=== PATIENT | female | born 1940 | race Caucasian/White ===

== ENCOUNTER 2018-04-04 09:48 | Inpatient (IN) | payer MEDICARE, MEDICAID ==
[2018-04-04 12:06] VITALS: BP 144/72
[2018-04-04] MEDS ORDERED: Maalox 30 mL Cup PO PRN (12:15)
[2018-04-04] MEDS ORDERED: Magnesium Hydroxide (MOM) 30 mL UDC PO PRN (12:15)
--- NOTE | 2018-04-04 20:59 | History & Physical ---
ADMIT DATE: 04/04/2018 CHIEF COMPLAINT: Admitted to inpatient psychiatry. HISTORY OF PRESENT ILLNESS: This is a 77-year-old female with history of hypertension, arthritis, diabetes, CAD status post CABG, admitted from outside of the hospital and directly admitted to inpatient unit with a medical history as mentioned in history of present illness. PAST SURGICAL HISTORY: Status post CABG, cataract surgery. ALLERGIES: PENICILLIN. MEDICATIONS: The patient is on aspirin, atorvastatin, Plendil, losartan, magnesium, metoprolol, metformin, multivitamins, Effexor, Ambien. FAMILY HISTORY: Noncontributory. SOCIAL HISTORY: Quit smoking at 37. Nondrinker. 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 The patient does have four kids. REVIEW OF SYSTEMS: HEENT: No blurred vision or pain. LUNGS: No diagnosis of COPD or asthma. HEART: The patient has hypertension, CAD and diabetes. ABDOMEN: No nausea, vomiting, pain. GENITOURINARY: The patient denies increased frequency or dysuria. NEUROLOGIC: No headache, seizure or syncope. PSYCHIATRIC: Stable. PHYSICAL EXAMINATION: VITAL SIGNS: Blood pressure 153/64, respiration 18, pulse 83, temperature 98.0. GENERAL: Elderly female in a wheelchair. NECK: Supple. No mass. LUNGS: Equal breath sounds, otherwise clear to auscultation. HEART: Regular rate and rhythm with systolic ejection murmur. ABDOMEN: Soft, globular. EXTREMITIES: Positive excoriation. NEUROLOGIC: Limited. LABORATORY DATA: On this admission are pending. There are medical records from outside of the hospital to review. ASSESSMENT AND PLAN: ____ hypertension, dementia, hypothyroidism, diabetes, coronary artery disease, continue the patient on insulin sliding scale. We will place the patient on insulin sliding scale. Continue metformin. We will review the rest of the laboratories. Continue statin medication. Continue Synthroid. We will review the patient's medication. We will follow closely with you. JOB# [id number]
[2018-04-04] MEDS: INSULIN ASPART, RECOMBINANT 100 UNITS/ML SUBQ SCH (21:29)
--- NOTE | 2018-04-05 04:38 | Psychiatric Evaluation ---
DATE OF SERVICE: 04/04/2018 IDENTIFYING DATA: The patient is a 77-year-old woman, resident of [facility]. Information obtained by directly interviewing the patient as well as reviewing the admission papers and they are reliable. JUSTIFICATION FOR HOSPITALIZATION: The patient is admitted on 5150 as a danger to self. CHIEF COMPLAINT: "I do not know. I took couple of pills." HISTORY OF PRESENT ILLNESS: This is the first psychiatric hospitalization to for this patient who is reported to have a longstanding history of depression and has been reported to be on Effexor. The patient on the day of the hospitalization is reported to have taken 9 tablets of Tylenol and the patient is reported to have been going through a lot of depression with multiple losses recently and hence the patient has been taken to the [facility] where she has been placed on 5150 and transferred over here for stabilization. During the evaluation, the patient's daughter who has been visiting the patient gave most of the information. The patient is reported to have been diagnosed to have dementia for the past 3 years and the patient has been diagnosed to have Lewy body dementia. The patient also reported to have been depression all her life. The patient is recently reported to have lost her best friend and her brother committed suicide and the patient has to sell her house and the patient is finding everything is dramatic. During the evaluation, the patient is also stating that she has been hearing music in her head and that the voices are male and very troublesome. The patient is not clearly articulating any command hallucinations. PAST PSYCHIATRIC HISTORY: Please refer to the above. MEDICAL HISTORY: Physical examination is requested to be done by Dr. Putnam. SUBSTANCE ABUSE HISTORY: None. PHYSICAL OR SEXUAL ABUSE HISTORY: None. LEGAL PROBLEMS: None at this time. SOCIAL HISTORY: The patient is a resident of the [facility]. STRENGTH AND ASSETS: The patient is motivated and has good family support. MENTAL STATUS EXAMINATION: The patient is a 77-year-old, looking her stated age. Eye contact is fair. Mood is noted to be anxious. Affect is constricted. The patient has paranoia and is reported to have been accusing the family of stealing her money and now she is telling that she has been hearing the voices and particularly music in her head. Insight and judgment at this time are noted to be still impaired. Impulse control is noted to be poor. Coping skills are noted to be very poor. The patient has been having difficult time to cope with the stress. However, the patient is willing to comply with the treatment. DIAGNOSTIC IMPRESSION: AXIS I: Major depressive disorder, recurrent and severe. AXIS IB: Lewy body dementia and behavioral changes, secondary trait. AXIS II: None. AXIS III: Hypertension, hypercholesterolemia and diabetes mellitus. IMMEDIATE TREATMENT PLAN: The patient is going to be observed on inpatient unit, provided with supportive psychotherapy. The patient is going to be closely monitored. The patient is going to be encouraged to participate in the groups and verbalize the concerns. ESTIMATED LENGTH OF STAY: 5-7 days. DISCHARGE CRITERIA: When she no longer a threat to self or others and be able to cope up with the stress. JOB# [id number]
[2018-04-05] MEDS: INSULIN ASPART, RECOMBINANT 100 UNITS/ML SUBQ SCH ×4 (06:35→21:47)
[2018-04-05] MEDS: Levothyroxine 0.075 Mg Tab PO SCH (06:49)
[2018-04-05] MEDS: Aspirin 81mg Chewable Tab PO SCH (08:59)
[2018-04-05] MEDS: Multivitamin Tab PO SCH (09:00)
[2018-04-05] MEDS ORDERED: Atorvastatin Calcium 10 MG TAB PO SCH (09:00)
--- NOTE | 2018-04-05 13:14 | Internal Medicine Prog Note ---
Internal Medicine Subjective - Subjective Patient seen and examined:: with staff, chart reviewed Patient is:: awake, verbal, interactive, in wheelchair Per staff patient has:: no adverse event, no episodes of fall, poor appetite, tolerating meds Internal Medicine Objective - Results Recent Labs: Laboratory Last Values POC Glucose 172 MG/DL (70 - 105) H 04/05/18 11:59 - Physical Exam Vitals and I&O: Vital Signs Temp 97.9 F 04/05/18 06:27 Pulse 89 04/05/18 09:00 Resp 20 04/05/18 06:27 BP 173/73 04/05/18 09:00 Pulse Ox 97 04/05/18 06:27 Intake & Output 04/04/18 04/05/18 04/05/18 18:59 06:59 18:59 Intake Total 480 Balance 480 Weight (lbs) 94.801 kg Intake: Oral 480 Other: # Voids 1 Weight Source Patient stated Active Medications: Current Medications Acetaminophen (Tylenol) 650 mg PO Q4HR PRN PRN Reason: Mild Pain / Temp above 100 Stop: 06/03/18 12:14 Al Hydrox/Mg Hydrox/Simethicone (Maalox) 30 ml PO Q4HR PRN PRN Reason: GI DISTRESS Stop: 06/03/18 12:14 Amlodipine Besylate (Norvasc) 5 mg PO DAILY [facility] Stop: 06/04/18 08:59 Last Admin: 04/05/18 09:00 Dose: 5 mg Aspirin (Aspirin Chewable) 81 mg PO DAILY [facility] Stop: 06/04/18 08:59 Last Admin: 04/05/18 08:59 Dose: 81 mg Atorvastatin Calcium (Lipitor) 40 mg PO DAILY [facility]; Protocol Stop: 06/04/18 08:59 Last Admin: 04/05/18 08:58 Dose: 40 mg Insulin Aspart (Novolog) 0 units SUBQ ACHS [facility]; Protocol Stop: 06/03/18 20:59 Last Admin: 04/05/18 12:01 Dose: Not Given Isosorbide Mononitrate (Imdur) 60 mg PO DAILY [facility] Stop: 06/04/18 08:59 Last Admin: 04/05/18 08:58 Dose: 60 mg Levothyroxine Sodium (Synthroid) 0.15 mg PO QDAC [facility] Stop: 06/04/18 07:29 Last Admin: 04/05/18 06:49 Dose: 0.15 mg Losartan Potassium (Cozaar) 100 mg PO DAILY [facility] Stop: 06/04/18 08:59 Last Admin: 04/05/18 08:59 Dose: 100 mg Magnesium Hydroxide (Milk Of Magnesia) 30 ml PO HS PRN PRN Reason: Constipation Metformin HCl (Glucophage) 500 mg PO BIDWM [facility] Stop: 06/04/18 08:59 Last Admin: 04/05/18 09:08 Dose: 500 mg Metoprolol Tartrate (Lopressor) 25 mg PO BID [facility] Stop: 06/04/18 08:59 Last Admin: 04/05/18 08:59 Dose: 25 mg Miscellaneous (Clinical Monitoring) 1 ea MC DAILY [facility] Stop: 06/04/18 08:59 Multivitamins/Vitamin C (Theragran) 1 tab PO DAILY [facility] Stop: 06/04/18 08:59 Last Admin: 04/05/18 09:00 Dose: 1 tab Venlafaxine HCl (Effexor Xr) 75 mg PO DAILY [facility]; Protocol Stop: 06/04/18 08:59 Last Admin: 04/05/18 08:58 Dose: 75 mg Zolpidem Tartrate (Ambien) 5 mg PO HS PRN PRN Reason: Insomnia Stop: 06/03/18 12:14 Last Admin: 04/04/18 22:25 Dose: 5 mg General: alert HEENT: NC/AT, PERRLA, EOMI Neck: Supple, No JVD Lungs: CTAB Cardiovascular: RRR, Normal S1, Normal S2 Abdomen: soft, non-tender, positive bowel sound Extremities: excoriation, contracture Neurological: disorganized, unsteady Internal Medicine Assmt/Plan - Assessment Assessment: ASSESSMENT AND PLAN: _dm___ hypertension, dementia, hypothyroidism, diabetes, coronary artery disease, - Plan Plan: PLAN: continue the patient on insulin sliding scale. We will place the patient on insulin sliding scale. Continue metformin. We will review the rest of the laboratories. Continue statin medication. Continue Synthroid. We will review the patient's medication. We will follow closely with you.
--- NOTE | 2018-04-06 01:39 | Progress Notes ---
DATE: 04/05/2018 PSYCHIATRIC PROGRESS NOTE SUBJECTIVE: Staff was spoken to. The patient is interviewed. Mood is noted to be dysphoric. The patient has been having difficult time to cope with the stress. No side effects to the medications are noted. The patient is still depressed. The patient is going on a tangent. The patient is confabulating. The patient is currently on 75 mg of the venlafaxine and has been able to tolerate the medication. The patient is very labile at this time. No side effects to the medications are noted. ASSESSMENT: The patient is still depressed and impulsive. PLAN: To closely monitor the patient. I encouraged the patient to verbalize the concerns rather than to act out. JOB# [id number]
[2018-04-06] MEDS: INSULIN ASPART, RECOMBINANT 100 UNITS/ML SUBQ SCH ×4 (06:34→20:46)
[2018-04-06] MEDS: Levothyroxine 0.075 Mg Tab PO SCH (06:45)
[2018-04-06] MEDS: Aspirin 81mg Chewable Tab PO SCH (08:57)
[2018-04-06] MEDS: Multivitamin Tab PO SCH (08:58)
--- NOTE | 2018-04-06 09:45 | Internal Medicine Prog Note ---
Internal Medicine Subjective - Subjective Patient seen and examined:: with staff, chart reviewed Patient is:: awake, verbal, interactive, in wheelchair Per staff patient has:: no adverse event, no episodes of fall, poor appetite, tolerating meds Internal Medicine Objective - Results Recent Labs: Laboratory Last Values POC Glucose 146 MG/DL (70 - 105) H 04/06/18 06:23 - Physical Exam Vitals and I&O: Vital Signs Temp 97.4 F 04/06/18 06:38 Pulse 68 04/06/18 09:00 Resp 18 04/06/18 06:38 BP 135/62 04/06/18 09:00 Pulse Ox 96 04/06/18 06:38 Intake & Output 04/05/18 04/06/18 04/06/18 18:59 06:59 18:59 Intake Total 950 Balance 950 Intake: Oral 950 Other: # Voids 3 # Bowel Movements 0 Active Medications: Current Medications Acetaminophen (Tylenol) 650 mg PO Q4HR PRN PRN Reason: Mild Pain / Temp above 100 Stop: 06/03/18 12:14 Al Hydrox/Mg Hydrox/Simethicone (Maalox) 30 ml PO Q4HR PRN PRN Reason: GI DISTRESS Stop: 06/03/18 12:14 Amlodipine Besylate (Norvasc) 5 mg PO DAILY [facility] Stop: 06/04/18 08:59 Last Admin: 04/06/18 08:59 Dose: 5 mg Aspirin (Aspirin Chewable) 81 mg PO DAILY [facility] Stop: 06/04/18 08:59 Last Admin: 04/06/18 08:57 Dose: 81 mg Atorvastatin Calcium (Lipitor) 40 mg PO DAILY [facility]; Protocol Stop: 06/04/18 08:59 Last Admin: 04/06/18 08:58 Dose: 40 mg Insulin Aspart (Novolog) 0 units SUBQ ACHS [facility]; Protocol Stop: 06/03/18 20:59 Last Admin: 04/06/18 06:34 Dose: Not Given Isosorbide Mononitrate (Imdur) 60 mg PO DAILY [facility] Stop: 06/04/18 08:59 Last Admin: 04/06/18 08:59 Dose: 60 mg Levothyroxine Sodium (Synthroid) 0.15 mg PO QDAC [facility] Stop: 06/04/18 07:29 Last Admin: 04/06/18 06:45 Dose: 0.15 mg Losartan Potassium (Cozaar) 100 mg PO DAILY [facility] Stop: 06/04/18 08:59 Last Admin: 04/06/18 09:00 Dose: 100 mg Magnesium Hydroxide (Milk Of Magnesia) 30 ml PO HS PRN PRN Reason: Constipation Metformin HCl (Glucophage) 500 mg PO BIDWM [facility] Stop: 06/04/18 08:59 Last Admin: 04/06/18 08:57 Dose: 500 mg Metoprolol Tartrate (Lopressor) 25 mg PO BID [facility] Stop: 06/04/18 08:59 Last Admin: 04/06/18 09:00 Dose: 25 mg Miscellaneous (Clinical Monitoring) 1 ea MC DAILY [facility] Stop: 06/04/18 08:59 Multivitamins/Vitamin C (Theragran) 1 tab PO DAILY [facility] Stop: 06/04/18 08:59 Last Admin: 04/06/18 08:58 Dose: 1 tab Venlafaxine HCl (Effexor Xr) 75 mg PO DAILY [facility]; Protocol Stop: 06/04/18 08:59 Last Admin: 04/06/18 08:57 Dose: 75 mg Zolpidem Tartrate (Ambien) 5 mg PO HS PRN PRN Reason: Insomnia Stop: 06/03/18 12:14 Last Admin: 04/04/18 22:25 Dose: 5 mg General: alert HEENT: NC/AT, PERRLA, EOMI Neck: Supple, No JVD Lungs: CTAB Cardiovascular: RRR, Normal S1, Normal S2 Abdomen: soft, non-tender, positive bowel sound Extremities: excoriation, contracture Neurological: disorganized, unsteady Internal Medicine Assmt/Plan - Assessment Assessment: ASSESSMENT AND PLAN: _dm___ hypertension, dementia, hypothyroidism, diabetes, coronary artery disease, - Plan Plan: PLAN: continue the patient on insulin sliding scale. We will place the patient on insulin sliding scale. Continue metformin. We will review the rest of the laboratories. Continue statin medication. Continue Synthroid. We will review the patient's medication. We will follow closely with you.
--- NOTE | 2018-04-06 16:09 | Progress Notes ---
DATE: 04/06/2018 SUBJECTIVE: Staff was spoken to. The patient is interviewed. Mood is noted to be irritable. Affect is constricted. The patient is going on a tangent. The patient is very intrusive and has been focusing on other people. Continues to be very paranoid and hyperverbal. Insight and judgment are noted to be impaired. Impulse control is noted to be limited. The patient has been going on a tangent. The patient is reporting that she has been hearing voices. ASSESSMENT: The patient is still impulsive. PLAN: To continue the patient with the supportive therapy, encouraged the patient to verbalize the concerns rather than to act out. JOB# [id number]
[2018-04-07] MEDS: Levothyroxine 0.075 Mg Tab PO SCH (06:42)
[2018-04-07] MEDS: INSULIN ASPART, RECOMBINANT 100 UNITS/ML SUBQ SCH ×4 (06:43→21:33)
[2018-04-07] MEDS: Aspirin 81mg Chewable Tab PO SCH (09:06)
[2018-04-07] MEDS: Multivitamin Tab PO SCH (09:07)
--- NOTE | 2018-04-07 09:55 | Internal Medicine Prog Note ---
Internal Medicine Subjective - Subjective Patient seen and examined:: with staff, chart reviewed Patient is:: awake, verbal, interactive, in wheelchair Per staff patient has:: no adverse event, no episodes of fall, poor appetite, tolerating meds Internal Medicine Objective - Results Recent Labs: Laboratory Last Values POC Glucose 146 MG/DL (70 - 105) H 04/07/18 06:28 - Physical Exam Vitals and I&O: Vital Signs Temp 97.2 F 04/06/18 20:00 Pulse 72 04/07/18 09:09 Resp 19 04/06/18 20:00 BP 131/68 04/07/18 09:09 Pulse Ox 96 04/06/18 20:00 Intake & Output 04/06/18 04/07/18 04/07/18 18:59 06:59 18:59 Intake Total 700 120 Balance 700 120 Intake: Oral 700 120 Other: # Voids 3 3 # Bowel Movements 0 Active Medications: Current Medications Acetaminophen (Tylenol) 650 mg PO Q4HR PRN PRN Reason: Mild Pain / Temp above 100 Stop: 06/03/18 12:14 Al Hydrox/Mg Hydrox/Simethicone (Maalox) 30 ml PO Q4HR PRN PRN Reason: GI DISTRESS Stop: 06/03/18 12:14 Amlodipine Besylate (Norvasc) 5 mg PO DAILY [facility] Stop: 06/04/18 08:59 Last Admin: 04/07/18 09:09 Dose: 5 mg Aspirin (Aspirin Chewable) 81 mg PO DAILY [facility] Stop: 06/04/18 08:59 Last Admin: 04/07/18 09:06 Dose: 81 mg Atorvastatin Calcium (Lipitor) 40 mg PO DAILY [facility]; Protocol Stop: 06/04/18 08:59 Last Admin: 04/07/18 09:06 Dose: 40 mg Insulin Aspart (Novolog) 0 units SUBQ ACHS [facility]; Protocol Stop: 06/03/18 20:59 Last Admin: 04/07/18 06:43 Dose: Not Given Isosorbide Mononitrate (Imdur) 60 mg PO DAILY [facility] Stop: 06/04/18 08:59 Last Admin: 04/07/18 09:07 Dose: 60 mg Lamotrigine (Lamictal) 50 mg PO DAILY [facility]; Protocol Stop: 06/06/18 08:59 Last Admin: 04/07/18 09:08 Dose: 50 mg Lamotrigine (Lamictal) 200 mg PO HS [facility]; Protocol Stop: 06/05/18 20:59 Last Admin: 04/06/18 20:38 Dose: 200 mg Levothyroxine Sodium (Synthroid) 0.15 mg PO QDAC [facility] Stop: 06/04/18 07:29 Last Admin: 04/07/18 06:42 Dose: 0.15 mg Losartan Potassium (Cozaar) 100 mg PO DAILY [facility] Stop: 06/04/18 08:59 Last Admin: 04/07/18 09:08 Dose: 100 mg Magnesium Hydroxide (Milk Of Magnesia) 30 ml PO HS PRN PRN Reason: Constipation Metformin HCl (Glucophage) 500 mg PO BIDWM [facility] Stop: 06/04/18 08:59 Last Admin: 04/07/18 09:06 Dose: 500 mg Metoprolol Tartrate (Lopressor) 25 mg PO BID [facility] Stop: 06/04/18 08:59 Last Admin: 04/07/18 09:08 Dose: 25 mg Miscellaneous (Clinical Monitoring) 1 ea MC DAILY [facility] Stop: 06/04/18 08:59 Multivitamins/Vitamin C (Theragran) 1 tab PO DAILY [facility] Stop: 06/04/18 08:59 Last Admin: 04/07/18 09:07 Dose: 1 tab Quetiapine Fumarate (Seroquel) 12.5 mg PO HS [facility]; Protocol Stop: 06/05/18 20:59 Last Admin: 04/06/18 20:37 Dose: 12.5 mg Venlafaxine HCl (Effexor Xr) 75 mg PO DAILY [facility]; Protocol Stop: 06/04/18 08:59 Last Admin: 04/07/18 09:07 Dose: 75 mg Zolpidem Tartrate (Ambien) 5 mg PO HS PRN PRN Reason: Insomnia Stop: 06/03/18 12:14 Last Admin: 04/04/18 22:25 Dose: 5 mg General: alert HEENT: NC/AT, PERRLA, EOMI Neck: Supple, No JVD Lungs: CTAB Cardiovascular: RRR, Normal S1, Normal S2 Abdomen: soft, non-tender, positive bowel sound Extremities: excoriation, contracture Neurological: disorganized, unsteady Internal Medicine Assmt/Plan - Assessment Assessment: ASSESSMENT AND PLAN: _dm___ hypertension, dementia, hypothyroidism, diabetes, coronary artery disease, - Plan Plan: PLAN: continue the patient on insulin sliding scale. We will place the patient on insulin sliding scale. Continue metformin. We will review the rest of the laboratories. Continue statin medication. Continue Synthroid. We will review the patient's medication. We will follow closely with you.
--- NOTE | 2018-04-07 21:24 | Consultation ---
DATE OF CONSULTATION: 04/05/2018 REQUESTING PHYSICIAN: Nelly Harris M.D. TYPE OF CONSULTATION: Psychology. HISTORY OF PRESENT ILLNESS: The patient is a 77-year-old female. The following is my review of the medical record as well as by the patient's self-report. The patient is being admitted on a 5150 as a danger to self. The staff at the patient's facility report that the patient has been depressed for some time with multiple losses recently. According to the record, the patient was taken to [facility] and placed on 5150 and transferred here for stabilization. The patient's daughter is very involved in her care. The patient stated upon interview that she had lost her best friend and that her brother committed suicide. The patient also stated there were some financial pressures and she felt she was forced to sell her house. The patient denied any suicidal ideation, plan or intention. However, apparently there is a passive wish to . PAST MEDICAL HISTORY: Please see history and physical by Dr. Putnam. PAST PSYCHIATRIC HISTORY: The patient has no previous hospitalizations. The patient apparently is not under the care of a psychiatrist or psychologist. The patient has a history of depression. SUBSTANCE ABUSE HISTORY: None. PSYCHOSOCIAL HISTORY: The patient's daughter is very involved in her care and is available to provide collateral information. The patient did not answer questions about mu-ism affiliation or educational history. The patient denied any history of physical or sexual abuse. The patient did not know whether there were any current legal problems but stated financial problems. The patient has excellent family support. MENTAL STATUS EXAMINATION: The patient appears to be her stated age. Eye contact is fair. Mood is anxious and depressed. Affect is labile. Speech is spontaneous. Thought process indicates possible paranoid delusions and is answering irrelevantly to the clinical questions. The patient is stating that she feels her family might be stealing her money. The patient stated that she does hear voices and specifically music in her head. The patient denied command type or persecutory type of delusions. The patient denied suicidal ideation, plan or intention. However, there may be a passive wish to . The patient reports that she is grieving multiple losses. The patient's behavior is withdrawn. Impulse control is poor. Concentration is poor. The patient did not participate in the memory assessment. Sensorium is alert and oriented to self and place and person, but not date or time. The patient is having difficulty coping with her current circumstances. The patient did not participate in any interpretation of proverbs. Insight is poor. Judgment is compromised. DIAGNOSTIC IMPRESSION: AXIS I: 1. Major depressive disorder, recurrent, severe. 2. Lewy body dementia with behavioral disturbance by history. AXIS II: Deferred. AXIS III: Per Dr. Putnam. TREATMENT PLAN: The patient has been seen by Dr. Harris for psychiatric evaluation for the patient's psychotropic medications. We will provide supportive psychotherapy to include reality orientation, differentiation and integration. We will provide coping strategies for phase of life issues. We will provide bereavement therapy for the patient's losses. We will provide cognitive behavioral therapy for the patient's depression. We will continue to provide motivational enhancement for the patient to become compliant and stay compliant with all aspects of her care and treatment. We will encourage the patient to verbalize her concerns. We will provide daily opportunities for the patient to verbally contract for safety and monitor for suicidal ideation. Thank you, Dr. Harris, for this consult and the opportunity to participate in this patient's care. JOB# [id number] ALYSSIA
--- NOTE | 2018-04-07 22:13 | Progress Notes ---
DATE: 04/07/2018 PSYCHIATRIC PROGRESS NOTE SUBJECTIVE: Staff was spoken to. The patient is interviewed. Mood is noted to be irritable. Affect is constricted. The patient is paranoid. The patient has been stating that something bad is going to happen and she has been getting easily agitated. The patient has no insight into her illness. The patient has been asking me to look into other patient's behaviors. The patient has been very loud. The patient's family has been reported to have been upset and that they want the patient to be transferred to a different hospital. The patient's 72-hour hold is up and I decided to encourage the patient to sign ____ or the family to look for a different hospital if they choose to be so. The patient's family does not want the patient to be on 12.5 mg of the Seroquel that was ordered for her paranoia, that is going to be discontinued. The patient is going to be continued on the Effexor and the Lamictal. ASSESSMENT: The patient is still psychotic and impulsive. PLAN: To continue the patient with supportive therapy. I encouraged the patient to verbalize the concerns rather than to act out. JOB# [id number]
[2018-04-08] MEDS: Levothyroxine 0.075 Mg Tab PO SCH (06:40)
[2018-04-08] MEDS: INSULIN ASPART, RECOMBINANT 100 UNITS/ML SUBQ SCH ×4 (06:42→21:22)
[2018-04-08] MEDS: Aspirin 81mg Chewable Tab PO SCH ×2 (09:18→10:04)
[2018-04-08] MEDS: Multivitamin Tab PO SCH ×2 (09:19→10:05)
--- NOTE | 2018-04-08 16:04 | Internal Medicine Prog Note ---
Internal Medicine Subjective - Subjective Patient seen and examined:: with staff, chart reviewed Patient is:: awake, verbal, interactive, in wheelchair Per staff patient has:: no adverse event, no episodes of fall, poor appetite, tolerating meds Internal Medicine Objective - Results Recent Labs: Laboratory Last Values POC Glucose 148 MG/DL (70 - 105) H 04/08/18 11:22 - Physical Exam Vitals and I&O: Vital Signs Temp 97.9 F 04/08/18 14:00 Pulse 78 04/08/18 14:00 Resp 20 04/08/18 14:00 BP 152/73 04/08/18 06:32 Pulse Ox 96 04/08/18 14:00 Intake & Output 04/07/18 04/08/18 04/08/18 18:59 06:59 18:59 Intake Total 180 Balance 180 Intake: Oral 180 Other: # Voids 2 # Bowel Movements 0 Active Medications: Current Medications Acetaminophen (Tylenol) 650 mg PO Q4HR PRN PRN Reason: Mild Pain / Temp above 100 Stop: 06/03/18 12:14 Al Hydrox/Mg Hydrox/Simethicone (Maalox) 30 ml PO Q4HR PRN PRN Reason: GI DISTRESS Stop: 06/03/18 12:14 Amlodipine Besylate (Norvasc) 5 mg PO DAILY [facility] Stop: 06/04/18 08:59 Last Admin: 04/08/18 10:04 Dose: Not Given Aspirin (Aspirin Chewable) 81 mg PO DAILY [facility] Stop: 06/04/18 08:59 Last Admin: 04/08/18 10:04 Dose: Not Given Atorvastatin Calcium (Lipitor) 40 mg PO DAILY [facility]; Protocol Stop: 06/04/18 08:59 Last Admin: 04/08/18 10:04 Dose: Not Given Insulin Aspart (Novolog) 0 units SUBQ ACHS [facility]; Protocol Stop: 06/03/18 20:59 Last Admin: 04/08/18 11:25 Dose: Not Given Isosorbide Mononitrate (Imdur) 60 mg PO DAILY [facility] Stop: 06/04/18 08:59 Last Admin: 04/08/18 10:04 Dose: Not Given Lamotrigine (Lamictal) 200 mg PO HS [facility]; Protocol Stop: 06/05/18 20:59 Last Admin: 04/07/18 21:32 Dose: 200 mg Lamotrigine (Lamictal) 200 mg PO DAILY [facility]; Protocol Stop: 06/07/18 08:59 Levothyroxine Sodium (Synthroid) 0.15 mg PO QDAC [facility] Stop: 06/04/18 07:29 Last Admin: 04/08/18 06:40 Dose: 0.15 mg Losartan Potassium (Cozaar) 100 mg PO DAILY [facility] Stop: 06/04/18 08:59 Last Admin: 04/08/18 10:04 Dose: Not Given Magnesium Hydroxide (Milk Of Magnesia) 30 ml PO HS PRN PRN Reason: Constipation Metformin HCl (Glucophage) 500 mg PO BIDWM [facility] Stop: 06/04/18 08:59 Last Admin: 04/08/18 10:04 Dose: Not Given Metoprolol Tartrate (Lopressor) 25 mg PO BID [facility] Stop: 06/04/18 08:59 Last Admin: 04/08/18 10:04 Dose: Not Given Miscellaneous (Clinical Monitoring) 1 ea MC DAILY [facility] Stop: 06/04/18 08:59 Multivitamins/Vitamin C (Theragran) 1 tab PO DAILY [facility] Stop: 06/04/18 08:59 Last Admin: 04/08/18 10:05 Dose: Not Given Venlafaxine HCl (Effexor Xr) 150 mg PO DAILY [facility]; Protocol Stop: 06/07/18 08:59 Last Admin: 04/08/18 10:05 Dose: Not Given Zolpidem Tartrate (Ambien) 5 mg PO HS PRN PRN Reason: Insomnia Stop: 06/03/18 12:14 Last Admin: 04/04/18 22:25 Dose: 5 mg General: alert HEENT: NC/AT, PERRLA, EOMI Neck: Supple, No JVD Lungs: CTAB Cardiovascular: RRR, Normal S1, Normal S2 Abdomen: soft, non-tender, positive bowel sound Extremities: excoriation, contracture Neurological: disorganized, unsteady Internal Medicine Assmt/Plan - Assessment Assessment: ASSESSMENT AND PLAN: _dm___ hypertension, dementia, hypothyroidism, diabetes, coronary artery disease, - Plan Plan: PLAN: continue the patient on insulin sliding scale. We will place the patient on insulin sliding scale. Continue metformin. We will review the rest of the laboratories. Continue statin medication. Continue Synthroid. We will review the patient's medication. We will follow closely with you. Nutritional Asmnt/Malnutr-PDOC - Dietary Evaluation Malnutrition Findings (Please click <Entered> for more info): Nutritional Asmnt/Malnutrition Start: 04/08/18 14: 20 Text: Status: Complete Freq: Protocol: Document 04/08/18 14:20 LCHENG (Rec: 04/08/18 14:33 LCTRINAG [email or web address]) Nutritional Asmnt/Malnutrition Patient General Information Nutritional Screening Moderate Risk Diagnosis psychosis NOS Pertinent Medical Hx/Surgical Hx CAD s/p CABG, cataract surgery , HTN, arthritis, DM Subjective Information Pt seen sleeping in bed at time of visit. Per EMR, PO intake 50-75%, 0% x 3 meals on 04/07. Pt is AO x 1 per nurse note. Current Diet Order/ Nutrition Support 1800 ADA Pertinent Medications lipitor, novolog, synthroid, glucophage, theragran Pertinent Labs 04/06-04/08 POC 145-161 Nutritional Hx/Data Height 1.65 m Height (Calculated Centimeters) 165.1 Current Weight (lbs) 94.801 kg Weight (Calculated Kilograms) 94.8 Weight (Calculated Grams) 91221.8 [place] Body Weight 130 Body Mass Index (BMI) 34.7 Weight Status Obese GI Symptoms GI Symptoms None Last BM none note Difficult in: None Skin Integrity/Comment: no skin problem noted per EMR. mohit score 18 Current %PO Fair (50-74%) Estimated Nutritional Goals BEE in Kcals: Adj wt of IBW Calories/Kcals/Kg 25-30 Kcals Calculated 5873-3233 Protein: Adj wt of IBW Protein g/k Protein Calculated 68 Fluid: ml 1700-2040ml (1ml/kcal) Nutritional Problem No current Nutrition Prob Problem N/A Malnutrition Alert Is there a minimum of two criteria No selected? Query Text:Check all the applicable criteria. A minimum of two criteria are recommended for diagnosis of either severe or non-severe malnutrition. Malnutrition Related to Morbid Obesity Malnutrition related to morbid obesity No Intervention/Recommendation Comments 1. Continue with 1800ADA diet as ordered. 2. Monitor PO intake, wt, labs and skin integrity 3. F/U as low risk in 7 days Expected Outcomes/Goals Expected Outcomes/Goals 1. PO intake to meet at least 75% of nutritional needs. 2. Wt stability, skin to remain intact, labs to approach WNL.
--- NOTE | 2018-04-09 03:44 | Progress Notes ---
DATE: 04/08/2018 PSYCHIATRIC PROGRESS NOTE SUBJECTIVE: Staff was spoken to. The patient is interviewed. Mood is noted to be irritable. Affect is constricted. The patient is reluctant to take any of the medications. The patient is currently on Effexor and Lamictal and has been becoming difficult for her to consent for the medications. No side effects to the medications are noted. The patient has been very irritable at this time. ASSESSMENT: The patient is having acute mood swings. PLAN: To continue the patient with the current medications and followup. JOB# [id number]
[2018-04-09] MEDS: Levothyroxine 0.075 Mg Tab PO SCH (06:31)
[2018-04-09] MEDS: INSULIN ASPART, RECOMBINANT 100 UNITS/ML SUBQ SCH ×4 (06:36→20:45)
[2018-04-09] MEDS: Aspirin 81mg Chewable Tab PO SCH (09:42)
[2018-04-09] MEDS: Multivitamin Tab PO SCH (09:42)
--- NOTE | 2018-04-09 13:22 | Internal Medicine Prog Note ---
Internal Medicine Subjective - Subjective Service Date: 04/09/18 Patient is:: awake, verbal, interactive, in wheelchair Per staff patient has:: no adverse event, no episodes of fall, poor appetite, tolerating meds Internal Medicine Objective - Results Recent Labs: Laboratory Last Values POC Glucose 126 MG/DL (70 - 105) H 04/09/18 06:34 - Physical Exam Vitals and I&O: Vital Signs Temp 98.2 F 04/09/18 06:35 Pulse 73 04/09/18 09:44 Resp 18 04/09/18 06:35 BP 152/73 04/09/18 09:44 Pulse Ox 96 04/09/18 06:35 Intake & Output 04/08/18 04/09/18 04/09/18 18:59 06:59 18:59 Intake Total 800 240 Balance 800 240 Intake: Oral 800 240 Other: # Voids 3 1 # Bowel Movements 1 Active Medications: Current Medications Acetaminophen (Tylenol) 650 mg PO Q4HR PRN PRN Reason: Mild Pain / Temp above 100 Stop: 06/03/18 12:14 Al Hydrox/Mg Hydrox/Simethicone (Maalox) 30 ml PO Q4HR PRN PRN Reason: GI DISTRESS Stop: 06/03/18 12:14 Amlodipine Besylate (Norvasc) 5 mg PO DAILY [facility] Stop: 06/04/18 08:59 Last Admin: 04/09/18 09:43 Dose: 5 mg Aspirin (Aspirin Chewable) 81 mg PO DAILY [facility] Stop: 06/04/18 08:59 Last Admin: 04/09/18 09:42 Dose: 81 mg Atorvastatin Calcium (Lipitor) 40 mg PO DAILY [facility]; Protocol Stop: 06/04/18 08:59 Last Admin: 04/09/18 09:43 Dose: 40 mg Insulin Aspart (Novolog) 0 units SUBQ ACHS [facility]; Protocol Stop: 06/03/18 20:59 Last Admin: 04/09/18 12:10 Dose: Not Given Isosorbide Mononitrate (Imdur) 60 mg PO DAILY [facility] Stop: 06/04/18 08:59 Last Admin: 04/09/18 09:42 Dose: 60 mg Lamotrigine (Lamictal) 200 mg PO HS [facility]; Protocol Stop: 06/05/18 20:59 Last Admin: 04/08/18 21:21 Dose: 200 mg Lamotrigine (Lamictal) 200 mg PO DAILY [facility]; Protocol Stop: 06/07/18 08:59 Levothyroxine Sodium (Synthroid) 0.15 mg PO QDAC [facility] Stop: 06/04/18 07:29 Last Admin: 04/09/18 06:31 Dose: 0.15 mg Losartan Potassium (Cozaar) 100 mg PO DAILY [facility] Stop: 06/04/18 08:59 Last Admin: 04/09/18 09:44 Dose: 100 mg Magnesium Hydroxide (Milk Of Magnesia) 30 ml PO HS PRN PRN Reason: Constipation Metformin HCl (Glucophage) 500 mg PO BIDWM [facility] Stop: 06/04/18 08:59 Last Admin: 04/09/18 09:10 Dose: Not Given Metoprolol Tartrate (Lopressor) 25 mg PO BID [facility] Stop: 06/04/18 08:59 Last Admin: 04/09/18 09:44 Dose: 25 mg Miscellaneous (Clinical Monitoring) 1 ea MC DAILY [facility] Stop: 06/04/18 08:59 Multivitamins/Vitamin C (Theragran) 1 tab PO DAILY [facility] Stop: 06/04/18 08:59 Last Admin: 04/09/18 09:42 Dose: 1 tab Venlafaxine HCl (Effexor Xr) 150 mg PO DAILY [facility]; Protocol Stop: 06/07/18 08:59 Last Admin: 04/09/18 09:43 Dose: 150 mg Zolpidem Tartrate (Ambien) 5 mg PO HS PRN PRN Reason: Insomnia Stop: 06/03/18 12:14 Last Admin: 04/04/18 22:25 Dose: 5 mg General: alert HEENT: NC/AT, PERRLA, EOMI Neck: Supple, No JVD Lungs: CTAB Cardiovascular: RRR, Normal S1, Normal S2 Abdomen: soft, non-tender, positive bowel sound Extremities: excoriation, contracture Neurological: disorganized, unsteady Internal Medicine Assmt/Plan - Assessment Assessment: hypertension, dementia, hypothyroidism, diabetes, coronary artery disease, - Plan Plan: monitor glucose cont bp meds fall precautions cont current plan of care Nutritional Asmnt/Malnutr-PDOC - Dietary Evaluation Malnutrition Findings (Please click <Entered> for more info): Nutritional Asmnt/Malnutrition Start: 04/08/18 14: 20 Text: Status: Complete Freq: Protocol: Document 04/08/18 14:20 AAKASH (Rec: 04/08/18 14:33 CHRISHAYDEN [email or web address]) Nutritional Asmnt/Malnutrition Patient General Information Nutritional Screening Moderate Risk Diagnosis psychosis NOS Pertinent Medical Hx/Surgical Hx CAD s/p CABG, cataract surgery , HTN, arthritis, DM Subjective Information Pt seen sleeping in bed at time of visit. Per EMR, PO intake 50-75%, 0% x 3 meals on 04/07. Pt is AO x 1 per nurse note. Current Diet Order/ Nutrition Support 1800 ADA Pertinent Medications lipitor, novolog, synthroid, glucophage, theragran Pertinent Labs 04/06-04/08 POC 145-161 Nutritional Hx/Data Height 5 ft 5 in Height (Calculated Centimeters) 165.1 Current Weight (lbs) 209 lb Weight (Calculated Kilograms) 94.8 Weight (Calculated Grams) 25280.8 [place] Body Weight 130 Body Mass Index (BMI) 34.7 Weight Status Obese GI Symptoms GI Symptoms None Last BM none note Difficult in: None Skin Integrity/Comment: no skin problem noted per EMR. mohit score 18 Current %PO Fair (50-74%) Estimated Nutritional Goals BEE in Kcals: Adj wt of IBW Calories/Kcals/Kg 25-30 Kcals Calculated 5339-9959 Protein: Adj wt of IBW Protein g/k Protein Calculated 68 Fluid: ml 1700-2040ml (1ml/kcal) Nutritional Problem No current Nutrition Prob Problem N/A Malnutrition Alert Is there a minimum of two criteria No selected? Query Text:Check all the applicable criteria. A minimum of two criteria are recommended for diagnosis of either severe or non-severe malnutrition. Malnutrition Related to Morbid Obesity Malnutrition related to morbid obesity No Intervention/Recommendation Comments 1. Continue with 1800ADA diet as ordered. 2. Monitor PO intake, wt, labs and skin integrity 3. F/U as low risk in 7 days Expected Outcomes/Goals Expected Outcomes/Goals 1. PO intake to meet at least 75% of nutritional needs. 2. Wt stability, skin to remain intact, labs to approach WNL.
--- NOTE | 2018-04-09 23:42 | Progress Notes ---
DATE: 04/08/2018 SUBJECTIVE: The patient is seen and interviewed. Case is discussed with staff. The patient presents as irritable. The staff reports the patient has been refusing medications intermittently and is often reluctant to comply with her medication regimen as well as staff direction. The patient reports that she does not believe she needs to be taking medications. OBJECTIVE: Mood irritable. Affect broad. Thought process is tangential and concrete. The patient continues to have mood lability i.e., mood swings. The patient denied any delusions or hallucinations. The patient's behavior has been reluctant to follow through with care. ASSESSMENT AND PLAN: The patient was provided with remotivation for the patient to become compliant with all aspects of her care and treatment and then to be able to take her p.o. meds. We provided reality orientation and integration. We provided coping strategies for phase of life issues. JOB# [id number] [email or web address]
--- NOTE | 2018-04-10 02:57 | Progress Notes ---
DATE: 04/09/2018 SUBJECTIVE: Staff was spoken to. The patient is interviewed. Mood is noted to be less irritable. Affect is appropriate. The patient has paranoia, but denies any command hallucinations. Insight and judgment are noted to be still impaired. Impulse control is noted to be poor. Coping skills are noted to very poor. The patient has overdosed on medications and is not very clear whether the patient is going to be accepted back at the facility or not. The patient's sleep and appetite are noted to be improving. No side effects to the medications are noted. The patient is currently on the Lamictal and Effexor. ASSESSMENT: The patient is still depressed. PLAN: To continue the patient with supportive therapy and followup. JOB# [id number]
[2018-04-10] MEDS: Levothyroxine 0.075 Mg Tab PO SCH (06:40)
[2018-04-10] MEDS: INSULIN ASPART, RECOMBINANT 100 UNITS/ML SUBQ SCH ×4 (06:47→20:44)
[2018-04-10] MEDS: Multivitamin Tab PO SCH (09:13)
[2018-04-10] MEDS: Aspirin 81mg Chewable Tab PO SCH (09:13)
[2018-04-10 15:18] LABS: URINE SOURCE CLEAN C
[2018-04-10 15:21] LABS: URINE BILIRUBIN SMALL (NEGATIVE); URINE BLOOD NEGATIVE (NEGATIVE); URINE GLUCOSE (UA) NEGATIVE (NEGATIVE); URINE KETONE TRACE mg/dL (NEGATIVE); URINE LEUKOCYTE ESTERASE MODERATE (NEGATIVE); URINE MICROSCOPIC INDICATED? YES; URINE NITRATE POSITIVE (NEGATIVE); URINE PROTEIN 30 mg/dL (NEGATIVE)
[2018-04-10 15:26] LABS: URINE CLARITY HAZY (CLEAR); URINE COLOR YELLOW
[2018-04-10 15:52] LABS: URINE RBC 0-2 /hpf (0-5)
[2018-04-10 15:54] LABS: URINE WBC 25-50 /hpf (0-5)
[2018-04-10 15:56] LABS: URINE BACTERIA FEW /hpf (NONE SEEN)
[2018-04-10 15:57] LABS: URINE EPITHELIAL CELLS FEW /lpf (FEW)
--- NOTE | 2018-04-10 16:35 | Internal Medicine Prog Note ---
Internal Medicine Subjective - Subjective Service Date: 04/10/18 Patient is:: awake, verbal, interactive, in wheelchair Per staff patient has:: no adverse event, no episodes of fall, poor appetite, tolerating meds Internal Medicine Objective - Results Recent Labs: Laboratory Last Values POC Glucose 131 MG/DL (70 - 105) H 04/10/18 06:49 Urine Source CLEAN C 04/10/18 15:15 Urine Color YELLOW 04/10/18 15:15 Urine Clarity HAZY (CLEAR) 04/10/18 15:15 Urine pH 6.0 (4.6 - 8.0) 04/10/18 15:15 Ur Specific [place] 1.015 (1.005-1.030) 04/10/18 15:15 Urine Protein 30 mg/dL (NEGATIVE) H 04/10/18 15:15 Urine Glucose (UA) NEGATIVE mg/dL (NEGATIVE) 04/10/18 15:15 Urine Ketones TRACE mg/dL (NEGATIVE) 04/10/18 15:15 Urine Blood NEGATIVE (NEGATIVE) 04/10/18 15:15 Urine Nitrate POSITIVE (NEGATIVE) H 04/10/18 15:15 Urine Bilirubin SMALL (NEGATIVE) H 04/10/18 15:15 Urine Urobilinogen 1.0 E.U./dL (0.2 - 1.0) 04/10/18 15:15 Ur Leukocyte Esterase MODERATE (NEGATIVE) H 04/10/18 15:15 Urine RBC 0-2 /hpf (0-5) 04/10/18 15:15 Urine WBC 25-50 /hpf (0-5) H 04/10/18 15:15 Ur Epithelial Cells FEW /lpf (FEW) 04/10/18 15:15 Urine Bacteria FEW /hpf (NONE SEEN) 04/10/18 15:15 - Physical Exam Vitals and I&O: Vital Signs Temp 97.4 F 04/10/18 14:00 Pulse 58 04/10/18 14:00 Resp 20 04/10/18 14:00 BP 114/42 04/10/18 14:00 Pulse Ox 96 04/10/18 14:00 Intake & Output 04/09/18 04/10/18 04/10/18 18:59 06:59 18:59 Intake Total 800 240 Balance 800 240 Intake: Oral 800 240 Other: # Voids 3 3 # Bowel Movements 1 0 Active Medications: Current Medications Acetaminophen (Tylenol) 650 mg PO Q4HR PRN PRN Reason: Mild Pain / Temp above 100 Stop: 06/03/18 12:14 Al Hydrox/Mg Hydrox/Simethicone (Maalox) 30 ml PO Q4HR PRN PRN Reason: GI DISTRESS Stop: 06/03/18 12:14 Amlodipine Besylate (Norvasc) 5 mg PO DAILY [facility] Stop: 06/04/18 08:59 Last Admin: 04/10/18 09:14 Dose: 5 mg Aspirin (Aspirin Chewable) 81 mg PO DAILY [facility] Stop: 06/04/18 08:59 Last Admin: 04/10/18 09:13 Dose: 81 mg Atorvastatin Calcium (Lipitor) 40 mg PO DAILY [facility]; Protocol Stop: 06/04/18 08:59 Last Admin: 04/10/18 09:13 Dose: 40 mg Insulin Aspart (Novolog) 0 units SUBQ ACHS [facility]; Protocol Stop: 06/03/18 20:59 Last Admin: 04/10/18 16:16 Dose: Not Given Isosorbide Mononitrate (Imdur) 60 mg PO DAILY [facility] Stop: 06/04/18 08:59 Last Admin: 04/10/18 09:12 Dose: 60 mg Lamotrigine (Lamictal) 200 mg PO HS [facility]; Protocol Stop: 06/05/18 20:59 Last Admin: 04/09/18 20:42 Dose: 200 mg Lamotrigine (Lamictal) 200 mg PO DAILY [facility]; Protocol Stop: 06/07/18 08:59 Last Admin: 04/10/18 09:13 Dose: 200 mg Levothyroxine Sodium (Synthroid) 0.15 mg PO QDAC [facility] Stop: 06/04/18 07:29 Last Admin: 04/10/18 06:40 Dose: 0.15 mg Losartan Potassium (Cozaar) 100 mg PO DAILY [facility] Stop: 06/04/18 08:59 Last Admin: 04/10/18 09:14 Dose: 100 mg Magnesium Hydroxide (Milk Of Magnesia) 30 ml PO HS PRN PRN Reason: Constipation Metformin HCl (Glucophage) 500 mg PO BIDWM [facility] Stop: 06/04/18 08:59 Last Admin: 04/10/18 09:13 Dose: 500 mg Metoprolol Tartrate (Lopressor) 25 mg PO BID [facility] Stop: 06/04/18 08:59 Last Admin: 04/10/18 09:14 Dose: 25 mg Miscellaneous (Clinical Monitoring) 1 ea MC DAILY [facility] Stop: 06/04/18 08:59 Multivitamins/Vitamin C (Theragran) 1 tab PO DAILY [facility] Stop: 06/04/18 08:59 Last Admin: 04/10/18 09:13 Dose: 1 tab Venlafaxine HCl (Effexor Xr) 150 mg PO DAILY [facility]; Protocol Stop: 06/07/18 08:59 Last Admin: 04/10/18 09:13 Dose: 150 mg Zolpidem Tartrate (Ambien) 5 mg PO HS PRN PRN Reason: Insomnia Stop: 06/03/18 12:14 Last Admin: 04/09/18 20:42 Dose: 5 mg General: alert HEENT: NC/AT, PERRLA, EOMI Neck: Supple, No JVD Lungs: CTAB Cardiovascular: RRR, Normal S1, Normal S2 Abdomen: soft, non-tender, positive bowel sound Extremities: excoriation, contracture Neurological: disorganized, unsteady Internal Medicine Assmt/Plan - Assessment Assessment: hypertension, dementia, hypothyroidism, diabetes, coronary artery disease, - Plan Plan: monitor glucose cont bp meds fall precautions cont current plan of care Nutritional Asmnt/Malnutr-PDOC - Dietary Evaluation Malnutrition Findings (Please click <Entered> for more info): Nutritional Asmnt/Malnutrition Start: 04/08/18 14: 20 Text: Status: Complete Freq: Protocol: Document 04/08/18 14:20 LCTRINAG (Rec: 04/08/18 14:33 LCHAYDEN [email or web address]) Nutritional Asmnt/Malnutrition Patient General Information Nutritional Screening Moderate Risk Diagnosis psychosis NOS Pertinent Medical Hx/Surgical Hx CAD s/p CABG, cataract surgery , HTN, arthritis, DM Subjective Information Pt seen sleeping in bed at time of visit. Per EMR, PO intake 50-75%, 0% x 3 meals on 04/07. Pt is AO x 1 per nurse note. Current Diet Order/ Nutrition Support 1800 ADA Pertinent Medications lipitor, novolog, synthroid, glucophage, theragran Pertinent Labs 04/06-04/08 POC 145-161 Nutritional Hx/Data Height 5 ft 5 in Height (Calculated Centimeters) 165.1 Current Weight (lbs) 209 lb Weight (Calculated Kilograms) 94.8 Weight (Calculated Grams) 78410.8 [place] Body Weight 130 Body Mass Index (BMI) 34.7 Weight Status Obese GI Symptoms GI Symptoms None Last BM none note Difficult in: None Skin Integrity/Comment: no skin problem noted per EMR. mohit score 18 Current %PO Fair (50-74%) Estimated Nutritional Goals BEE in Kcals: Adj wt of IBW Calories/Kcals/Kg 25-30 Kcals Calculated 0386-4341 Protein: Adj wt of IBW Protein g/k Protein Calculated 68 Fluid: ml 1700-2040ml (1ml/kcal) Nutritional Problem No current Nutrition Prob Problem N/A Malnutrition Alert Is there a minimum of two criteria No selected? Query Text:Check all the applicable criteria. A minimum of two criteria are recommended for diagnosis of either severe or non-severe malnutrition. Malnutrition Related to Morbid Obesity Malnutrition related to morbid obesity No Intervention/Recommendation Comments 1. Continue with 1800ADA diet as ordered. 2. Monitor PO intake, wt, labs and skin integrity 3. F/U as low risk in 7 days Expected Outcomes/Goals Expected Outcomes/Goals 1. PO intake to meet at least 75% of nutritional needs. 2. Wt stability, skin to remain intact, labs to approach WNL.
--- NOTE | 2018-04-11 01:01 | Progress Notes ---
DATE: 04/10/2018 SUBJECTIVE: The patient is seen and interviewed. The patient's son-in-law, Elías is by her bedside and is also providing collateral information. The patient states that she feels she should have been discharged by now. The patient does not understand fully why she is being hospitalized. The patient has a history of poor compliance with medication. The patient's son-in-law requested a discussion regarding return to her placement and followup by Psychiatry and Psychology. Both the patient and her son-in-law were informed of that process and also referred to social media editor to assist in a smooth transition and discharge to her original placement. OBJECTIVE: Mood is less irritable. Affect is broad and expansive. Thought process is tangential; however, the patient is responding somewhat relevantly to the clinical questions and is able to respond to cognitive redirection. The patient's memory impairment seems to persist. The patient denied any delusions or hallucinations; however, the patient stated that she thinks that her answers to questions and her sense of humor may give the impression that the staff here and her doctors might think that she is crazy. The patient's behavior has been somewhat demanding of staff. However, the patient is responding well and is complimentary about staff involvement. ASSESSMENT AND PLAN: As above. The patient's psychosis seems to be improving. The patient has a history of urinary tract infection as well as Lewy body dementia. According to the patient's son-in-law, the patient has had sundowners episodes at her assisted living placement. Both the patient and her son-in-law requested a meeting with social media editor as well as with the attending psychiatrist. This request was passed on to the staff. We provided reality integration. We provided positive reinforcement and re-motivation for the patient to stay compliant with her medications as this is a primary issue for her historically, with respect to compliance with her care. We provided supportive therapy as well as providing coping strategies for phase of life issues and adjustment to her medical condition. JOB# [id number] ALYSSIA
--- NOTE | 2018-04-11 02:36 | Progress Notes ---
DATE: 04/10/2018 SUBJECTIVE: Staff was spoken to. The patient is interviewed. Mood is noted to be less irritable. The patient is stating that it was a mistake that she took the pills, but she states that she has been trying to cope with the stress. No side effects to the medications are noted. Insight and judgment at this time are noted to be improving. The patient's gearcase assembler has been informed with the patient stabilization and we will be working with the placement that is whether it is going to be okay to take the patient back or not. JOB# [id number]
[2018-04-11] MEDS: Levothyroxine 0.075 Mg Tab PO SCH (06:36)
[2018-04-11] MEDS: INSULIN ASPART, RECOMBINANT 100 UNITS/ML SUBQ SCH ×3 (06:40→16:58)
[2018-04-11] MEDS: Aspirin 81mg Chewable Tab PO SCH (09:00)
[2018-04-11] MEDS: Sulfamethoxazole/TMP 800/160mg Tab PO SCH ×2 (09:00→16:58)
[2018-04-11] MEDS: Multivitamin Tab PO SCH (10:05)
--- NOTE | 2018-04-11 12:25 | Progress Notes ---
DATE: 04/11/2018 SUBJECTIVE: Staff was spoken to. The patient is interviewed. Mood is noted to be irritable. Affect is constricted. Continues to be very paranoid and the patient is stating that there is a collusion between her bank and the ___ and her daughter and $4300 have been siphoned out every month. The patient is stating that she would rather go and then stay underneath a bridge or a tent, does not want to pay the money. The patient has been very paranoid and is reluctant to comply with the treatment. ASSESSMENT: The patient is psychotic. PLAN: To continue the patient with the supportive therapy and leather case finisher has been informed to contact the patient's daughter and work with the discharge planning. JOB# [id number]
--- NOTE | 2018-04-11 15:12 | Internal Medicine Prog Note ---
Internal Medicine Subjective - Subjective Patient seen and examined:: with staff, chart reviewed Patient is:: awake, verbal, interactive, in wheelchair Per staff patient has:: no adverse event, no episodes of fall, poor appetite, tolerating meds Internal Medicine Objective - Results Recent Labs: Laboratory Last Values POC Glucose 146 MG/DL (70 - 105) H 04/11/18 06:38 Urine Source CLEAN C 04/10/18 15:15 Urine Color YELLOW 04/10/18 15:15 Urine Clarity HAZY (CLEAR) 04/10/18 15:15 Urine pH 6.0 (4.6 - 8.0) 04/10/18 15:15 Ur Specific [place] 1.015 (1.005-1.030) 04/10/18 15:15 Urine Protein 30 mg/dL (NEGATIVE) H 04/10/18 15:15 Urine Glucose (UA) NEGATIVE mg/dL (NEGATIVE) 04/10/18 15:15 Urine Ketones TRACE mg/dL (NEGATIVE) 04/10/18 15:15 Urine Blood NEGATIVE (NEGATIVE) 04/10/18 15:15 Urine Nitrate POSITIVE (NEGATIVE) H 04/10/18 15:15 Urine Bilirubin SMALL (NEGATIVE) H 04/10/18 15:15 Urine Urobilinogen 1.0 E.U./dL (0.2 - 1.0) 04/10/18 15:15 Ur Leukocyte Esterase MODERATE (NEGATIVE) H 04/10/18 15:15 Urine RBC 0-2 /hpf (0-5) 04/10/18 15:15 Urine WBC 25-50 /hpf (0-5) H 04/10/18 15:15 Ur Epithelial Cells FEW /lpf (FEW) 04/10/18 15:15 Urine Bacteria FEW /hpf (NONE SEEN) 04/10/18 15:15 - Physical Exam Vitals and I&O: Vital Signs Temp 97 F 04/11/18 06:02 Pulse 60 04/11/18 10:05 Resp 18 04/11/18 11:23 BP 149/63 04/11/18 10:05 Pulse Ox 98 04/11/18 06:02 Intake & Output 04/10/18 04/11/18 04/11/18 18:59 06:59 18:59 Intake Total 1200 520 Output Total 1 Balance 1200 519 Intake: Oral 1200 520 Output: Stool 1 Other: # Voids 4 2 # Bowel Movements 0 Active Medications: Current Medications Acetaminophen (Tylenol) 650 mg PO Q4HR PRN PRN Reason: Mild Pain / Temp above 100 Stop: 06/03/18 12:14 Al Hydrox/Mg Hydrox/Simethicone (Maalox) 30 ml PO Q4HR PRN PRN Reason: GI DISTRESS Stop: 06/03/18 12:14 Amlodipine Besylate (Norvasc) 5 mg PO DAILY [facility] Stop: 06/04/18 08:59 Last Admin: 04/11/18 10:03 Dose: 5 mg Aspirin (Aspirin Chewable) 81 mg PO DAILY [facility] Stop: 06/04/18 08:59 Last Admin: 04/11/18 09:00 Dose: 81 mg Atorvastatin Calcium (Lipitor) 40 mg PO DAILY [facility]; Protocol Stop: 06/04/18 08:59 Last Admin: 04/11/18 10:05 Dose: 40 mg Insulin Aspart (Novolog) 0 units SUBQ ACHS [facility]; Protocol Stop: 06/03/18 20:59 Last Admin: 04/11/18 11:21 Dose: Not Given Isosorbide Mononitrate (Imdur) 60 mg PO DAILY [facility] Stop: 06/04/18 08:59 Last Admin: 04/11/18 10:05 Dose: 60 mg Lamotrigine (Lamictal) 200 mg PO HS [facility]; Protocol Stop: 06/05/18 20:59 Last Admin: 04/10/18 20:43 Dose: 200 mg Lamotrigine (Lamictal) 200 mg PO DAILY [facility]; Protocol Stop: 06/07/18 08:59 Last Admin: 04/11/18 09:00 Dose: 200 mg Levothyroxine Sodium (Synthroid) 0.15 mg PO QDAC [facility] Stop: 06/04/18 07:29 Last Admin: 04/11/18 06:36 Dose: 0.15 mg Losartan Potassium (Cozaar) 100 mg PO DAILY [facility] Stop: 06/04/18 08:59 Last Admin: 04/11/18 10:02 Dose: 100 mg Magnesium Hydroxide (Milk Of Magnesia) 30 ml PO HS PRN PRN Reason: Constipation Metformin HCl (Glucophage) 500 mg PO BIDWM [facility] Stop: 06/04/18 08:59 Last Admin: 04/11/18 09:00 Dose: 500 mg Metoprolol Tartrate (Lopressor) 25 mg PO BID [facility] Stop: 06/04/18 08:59 Last Admin: 04/11/18 10:01 Dose: 25 mg Miscellaneous (Clinical Monitoring) 1 ea MC DAILY [facility] Stop: 06/04/18 08:59 Multivitamins/Vitamin C (Theragran) 1 tab PO DAILY [facility] Stop: 06/04/18 08:59 Last Admin: 04/11/18 10:05 Dose: 1 tab Trimethoprim/Sulfamethoxazole (Bactrim Ds) 1 tab PO BID [facility] Stop: 06/09/18 16:59 Last Admin: 04/11/18 09:00 Dose: 1 tab Venlafaxine HCl (Effexor Xr) 150 mg PO DAILY [facility]; Protocol Stop: 06/07/18 08:59 Last Admin: 04/11/18 09:00 Dose: 150 mg Zolpidem Tartrate (Ambien) 5 mg PO HS PRN PRN Reason: Insomnia Stop: 06/03/18 12:14 Last Admin: 04/10/18 20:43 Dose: 5 mg General: alert HEENT: NC/AT, PERRLA, EOMI Neck: Supple, No JVD Lungs: CTAB Cardiovascular: RRR, Normal S1, Normal S2 Abdomen: soft, non-tender, positive bowel sound Extremities: excoriation, contracture Neurological: disorganized, unsteady Internal Medicine Assmt/Plan - Assessment Assessment: ASSESSMENT AND PLAN: _dm___ hypertension, dementia, hypothyroidism, diabetes, coronary artery disease, - Plan Plan: PLAN: continue the patient on insulin sliding scale. We will place the patient on insulin sliding scale. Continue metformin. We will review the rest of the laboratories. Continue statin medication. Continue Synthroid. We will review the patient's medication. We will follow closely with you. Nutritional Asmnt/Malnutr-PDOC - Dietary Evaluation Malnutrition Findings (Please click <Entered> for more info): Nutritional Asmnt/Malnutrition Start: 04/08/18 14: 20 Text: Status: Complete Freq: Protocol: Document 04/08/18 14:20 LCHENG (Rec: 04/08/18 14:33 LCHENG [email or web address]) Nutritional Asmnt/Malnutrition Patient General Information Nutritional Screening Moderate Risk Diagnosis psychosis NOS Pertinent Medical Hx/Surgical Hx CAD s/p CABG, cataract surgery , HTN, arthritis, DM Subjective Information Pt seen sleeping in bed at time of visit. Per EMR, PO intake 50-75%, 0% x 3 meals on 04/07. Pt is AO x 1 per nurse note. Current Diet Order/ Nutrition Support 1800 ADA Pertinent Medications lipitor, novolog, synthroid, glucophage, theragran Pertinent Labs 04/06-04/08 POC 145-161 Nutritional Hx/Data Height 1.65 m Height (Calculated Centimeters) 165.1 Current Weight (lbs) 94.801 kg Weight (Calculated Kilograms) 94.8 Weight (Calculated Grams) 04371.8 [place] Body Weight 130 Body Mass Index (BMI) 34.7 Weight Status Obese GI Symptoms GI Symptoms None Last BM none note Difficult in: None Skin Integrity/Comment: no skin problem noted per EMR. mohit score 18 Current %PO Fair (50-74%) Estimated Nutritional Goals BEE in Kcals: Adj wt of IBW Calories/Kcals/Kg 25-30 Kcals Calculated 4017-9931 Protein: Adj wt of IBW Protein g/k Protein Calculated 68 Fluid: ml 1700-2040ml (1ml/kcal) Nutritional Problem No current Nutrition Prob Problem N/A Malnutrition Alert Is there a minimum of two criteria No selected? Query Text:Check all the applicable criteria. A minimum of two criteria are recommended for diagnosis of either severe or non-severe malnutrition. Malnutrition Related to Morbid Obesity Malnutrition related to morbid obesity No Intervention/Recommendation Comments 1. Continue with 1800ADA diet as ordered. 2. Monitor PO intake, wt, labs and skin integrity 3. F/U as low risk in 7 days Expected Outcomes/Goals Expected Outcomes/Goals 1. PO intake to meet at least 75% of nutritional needs. 2. Wt stability, skin to remain intact, labs to approach WNL.
--- NOTE | 2018-04-12 19:55 | Discharge Summary ---
DATE OF DISCHARGE: 04/11/2018 IDENTIFYING DATA: The patient is a 77-year-old woman, resident of [facility]. Information obtained by directly interviewing the patient as well as reviewing the admission papers. JUSTIFICATION FOR HOSPITALIZATION: The patient has been 5150 as a danger to self. CHIEF COMPLAINT: "I do not know, I just took a couple of pills." DIAGNOSES AT THE TIME OF ADMISSION: AXIS I: Major depressive disorder, recurrent and severe. AXIS IB: ____ dementia and behavioral changes secondary trait. AXIS II: None. AXIS III: Hypertension, hypercholesterolemia and diabetes mellitus. HOSPITAL COURSE AND RESPONSE TO TREATMENT: The patient had the physical examination done at the time of the admission by Dr. Galeano. Blood work done at the time of the hospitalization has been reviewed and the patient has been noted to have urinary tract infection and the patient has been placed on antibiotic. HOSPITAL COURSE AND RESPONSE TO TREATMENT: The patient's family does not want the patient to be on any antipsychotic medications. The patient had been continued on the Effexor and Lamictal and the patient continued to be paranoid and has been focused on her money being taken away by the custodial facility and the patient does not want to go there. Finally, daughter who happened to be the [employer]ist convinced the patient to go home and the patient was discharged on 04/11/2018 with recommendation that she is going to be seeking treatment on an outpatient basis. MENTAL STATUS EXAMINATION: At the time of the discharge, the patient's mood is noted to be irritable. Affect is constricted. Insight and judgment at this time are noted to be still impaired. Impulse control is noted to be poor. Coping skills are also noted to be poor. The patient has been having difficult time to cope with the stress. The patient is still continued to be paranoid and the patient's son was there and requested to have his mother leave take against medical advice. He is not stating that he is not happy with the care and since the patient is not presenting with any acute distress, the patient has been discharged against medical advice. DIAGNOSES AT THE TIME OF DISCHARGE: AXIS I: Psychotic disorder, not otherwise specified. 1B: Dementia and behavioral change, secondary trait. AXIS II: None. AXIS III: As per Dr. Galeano. AFTERCARE PLAN: The patient is discharged to the family at their request. JOB# [id number]
== END 2018-04-11 17:00 | disposition left against medical advice (07) | DRG 885 ==
LOC: GERO 09:48
PROVIDERS: ADMIT Psychiatry & Neurology Psychiatry; ATTEND Psychiatry & Neurology Psychiatry
DX: F33.2 Major depressive disorder, recurrent severe without psychotic features (principal); F02.81 Dementia in other diseases classified elsewhere, unspecified severity, with behavioral disturbance; G31.83 Neurocognitive disorder with Lewy bodies; E11.9 Type 2 diabetes mellitus without complications; Z53.21 Procedure and treatment not carried out due to patient leaving prior to being seen by health care provider; I10 Essential (primary) hypertension; E78.00 Pure hypercholesterolemia, unspecified; M19.90 Unspecified osteoarthritis, unspecified site; I25.10 Atherosclerotic heart disease of native coronary artery without angina pectoris; Z95.1 Presence of aortocoronary bypass graft; Z88.0 Allergy status to penicillin; Z98.41 Cataract extraction status, right eye; Z98.42 Cataract extraction status, left eye; Z79.84 Long term (current) use of oral hypoglycemic drugs; Z87.891 Personal history of nicotine dependence; E03.9 Hypothyroidism, unspecified
CPT/HCPCS: 81001-TC; 82948-90; 83036-90; 87086-90; 90899; G0410; J1815; Z7610